=== PATIENT | female | born 1970 | race Hispanic/Latino ===

== ENCOUNTER 2020-11-10 12:35 | Observation (INO) | payer OTHER ==
[2020-11-10] VITALS (7 sets, daily range): BP systolic 82–93; BP diastolic 50–53
[~2020-11-10] VITALS: Ht 154.9 cm; Wt 86.0 kg
[~2020-11-10 12:35] MED LIST: AMOXICILLIN/CL875 MG OR; AMOXICILLIN500 MG PO; ASPIRIN; AUGMENTIN500 MG OR; AUGMENTIN875TAB OR; AUGMENTIN875TAB PO; AVELOX400 MG PO; CETIRIZINE10 MG PO; CLARITHROMYCIN500 MG PO; FLAGYL500 MG OR; FLONASE NASAL50 MCG; IBUPROFEN200 MG; LEVAQUIN500 MG PO; LEVAQUIN750 MG PO; NAPROSYN500 MG OR; NASONEX50 MCG/AC; NO HOME MEDS; OMEPRAZOLE40 MG PO; PENICILLN VK500 MG OR; PREVACID30 M1; PRILOSEC40 MG PO; PROAIR HFA IN; QVAR40 MCG IN; QVAR80 MCG IN; ROBITUSSIN AC OR; ROBITUSSIN AC10 ML PO; ROCEPHIN 1 GM1 GM IM; VENTOLIN HFA IN; ZOFRAN ODT8 MG SL; ZPAK OR; ZPAK PO
--- NOTE | 2020-11-10 12:47 | NUR ---
PT TO ROOM VIA W/C
[2020-11-10] MEDS ORDERED: LEVOTHYROXIN50 MCG PO (12:59)
[2020-11-10] MEDS ORDERED: LOSARTAN POTASS25 MG PO (13:24)
[2020-11-10 13:28] LABS: HEMATOCRIT 37.3 % (37.0-47.0); HEMOGLOBIN 12.1 g/dl (12.0-16.0); IMMATURE GRANULOCYTES 0.9 % (0.0-5.0); MEAN CELL VOLUME 89.2 fL CALC (80.0-100.0); MEAN CORPUSCULAR HGB 28.9 pG CALC (26.0-32.0); MEAN CORPUSCULAR HGB CONC 32.4 g/dL CAL (32.0-36.0); NEUT# 2.67 thou/uL (2.00-7.15); RED BLOOD COUNT 4.18 mill/uL (4.20-5.60); RED CELL DISTRI WIDTH 14.6 % (11.5-15.5)
--- NOTE | 2020-11-10 13:30 | NUR ---
TREATMENTS COMPLETED AND PT UPDATED ON PLAN OF CARE. PT ASKED FOR BLANKET BUT BECAUSE OF FEVER, REQUEST WAS DENIED. SHE VERBALIZED UNDERSTANDING. FLUIDS FLOWING INTO PATENT IV. PT HYPOTENSIVE AND INSPECTOR AIDE NOTIFED.
[2020-11-10 13:39] LABS: URINE BLOOD DIPSTICK LARGE (NEGATIVE); URINE GLUCOSE - DIPSTICK NEGATIVE (NEGATIVE); URINE KETONE TRACE mg/dL (NEGATIVE); URINE PH 5.5 (4.5-8.0); URINE PROTEIN - DIPSTICK >=300 mg/dL (NEG-TRACE); URINE SPECIFIC GRAVITY 1.025
[2020-11-10 13:53] LABS: URINE BILIRUBIN - DIPSTICK SMALL (NEGATIVE); URINE COLOR DK. YELLOW; URINE LEUK ESTERASE SMALL (NEGATIVE); URINE NITRITE - DIPSTICK POSITIVE (Negative)
[2020-11-10 13:54] LABS: URINE BACTERIA MODERATE hpf; URINE EPITHELIAL CELLS MODERATE EPI/hpf (0-FEW); URINE RBC 50-100 RBC/hpf (0-5)
[2020-11-10 13:55] LABS: ALBUMIN 3.3 g/dL (3.2-5.0); ALKALINE PHOSPHATASE 71 u/l (38-126); BILIRUBIN, TOTAL 0.7 mg/dL (0.0-1.4); BUN 12 mg/dL (7-17); BUN/CREATININE RATIO 22 (12-20 (CALC)); CHLORIDE 102 mmol/l (95-108); CREATININE 0.5 mg/dL (0.5-1.0); GFR > 60 ML/MIN (>=60 (CALC)); GFR FOR AFR.AMER. > 60 ML/MIN (>=60 (CALC)); POTASSIUM 3.4 mmol/l (3.5-5.1); SODIUM 132 mmol/l (137-146); TOTAL PROTEIN 6.6 g/dL (6.3-8.2)
[2020-11-10 13:56] LABS: ANION GAP 10 (6-22 (CALC)); CARBON DIOXIDE 23 mmol/l (22-30); SGOT/AST 30 u/l (14-36)
--- NOTE | 2020-11-10 14:30 | NUR ---
GAVE REPORT TO MED SURG AND THEN DOCTOR CALLED TO CHANGE PT FROM BEING ADMITTED FROM MED SURG TO ICU. PT IS NOTIFED AND UPDATED ON THIS CHANGE.
--- NOTE | 2020-11-10 14:30 | NUR ---
PT RESTING WITH FLUIDS FLOWING INTO PATENT IV. ANTIBIOTIC COMPLETED
--- NOTE | 2020-11-10 15:30 | NUR ---
PT IS RESTING ON STRETCHER WITH FLUIDS FLOWING INTO PATENT IV
--- NOTE | 2020-11-10 16:27 | NUR ---
RECIEVED REPORT FROM ZARI HOPE. MANAGER FINE INFORMED THAT PT BP WAS SUSTAINING IN 80'S/50'S AFTER BOLUS X2. DR BECERRA CONTACTED VIA THIS MANAGER FINE. NO NEW ORDERS OBTAINED.
--- NOTE | 2020-11-10 16:52 | NUR ---
SOLAR SALES ASSESSOR INFORMED THAT PT WAS TO BE TRANSFERED TO ICU
--- NOTE | 2020-11-10 17:12 | NUR ---
PT RESTING WITH FLUIDS FLOWING INTO PATENT IV. COMMUNICATIONS ADMINISTRATOR UPDATED REG ON PT VITALS
--- NOTE | 2020-11-10 18:35 | NUR ---
GAVE REPORT TO BERE IN ICU
--- NOTE | 2020-11-10 19:52 | NUR ---
PT TRANSPORTED TO ICU ALL BELONGINGS WITH PATIENT.
--- NOTE | 2020-11-10 19:55 | NUR ---
PT TRASNPORTED TO ICU, ALL BELONINGS SENT WITH PATIENT
--- NOTE | 2020-11-10 20:00 | NUR ---
TO ICU 2. ALERT. COOPERATIVE. STATES HAD S/S OF UTI 11/07 BUT TOOK OTC MEDS FROM [facility] AND IS BETTER-NO MORE BURNING OR FREQUENCY. STATES THROUGHOUT DAY (WHILE IN ER) HAD FEVER AND SWEATED BUT FEELS MUCH BETTER NOW. B/P REMAINS SLIGHTLY LOW
--- NOTE | 2020-11-10 21:30 | NUR ---
DAUGHTER CALLED. PT AWARE AND TALKING ON CELL PHONE. NO DISTRESS NOTED. IV INFUSING RX-TOLERATINNG WELL
--- NOTE | 2020-11-10 22:14 | NUR ---
BEDRESTING. LIGHTS OUT. TV ON. N/C. HAS AGREED TO CALL FOR ASSISTANCE IF NEEDED TO GET UP TO BSC
[2020-11-11] VITALS (16 sets, daily range): BP systolic 87–122; BP diastolic 50–73
--- NOTE | 2020-11-11 | NUR ---
BEDRESTING. LIF=GHTS AND TV OFF. RESP EVEN AND NONLABORED. N/C VOICED
--- NOTE | 2020-11-11 01:43 | NUR ---
BEDRESTING. RESP EVEN AND NONLABORED. NO COUGH NOTED. N/C VOICED
--- NOTE | 2020-11-11 03:20 | NUR ---
BEDRESTING. RESP EVEN AND NONLABORED.
--- NOTE | 2020-11-11 04:38 | NUR ---
BEDRESTING. TV OFF. NO DISTRESS OTED
[2020-11-11 05:24] LABS: HEMATOCRIT 32.3 % (37.0-47.0); HEMOGLOBIN 10.2 g/dl (12.0-16.0); MEAN CELL VOLUME 91.2 fL CALC (80.0-100.0); MEAN CORPUSCULAR HGB 28.8 pG CALC (26.0-32.0); MEAN CORPUSCULAR HGB CONC 31.6 g/dL CAL (32.0-36.0); RED BLOOD COUNT 3.54 mill/uL (4.20-5.60); RED CELL DISTRI WIDTH 14.7 % (11.5-15.5)
[2020-11-11 05:48] LABS: ANION GAP 8 (6-22 (CALC)); BUN 9 mg/dL (7-17); BUN/CREATININE RATIO 21 (12-20 (CALC)); CARBON DIOXIDE 24 mmol/l (22-30); CHLORIDE 106 mmol/l (95-108); CREATININE 0.4 mg/dL (0.5-1.0); GFR > 60 ML/MIN (>=60 (CALC)); GFR FOR AFR.AMER. > 60 ML/MIN (>=60 (CALC)); MAGNESIUM 1.5 mg/dL (1.6-2.3); POTASSIUM 3.4 mmol/l (3.5-5.1); SODIUM 135 mmol/l (137-146)
--- NOTE | 2020-11-11 06:54 | NUR ---
REPORT GIVEN. BEDRESTING. WATCHING TV
--- NOTE | 2020-11-11 07:00 | NUR ---
REPORT RECEIVED FROM ZARI MONREAL
--- NOTE | 2020-11-11 07:15 | NUR ---
PT RESTING IN SEMI FOWLERS POSITION,A&O X3;VS OBTAINED AND ASSESSMENT COMPLETED;PT DENIES ANY CURRENT PAIN OR DISCOMFORTS,PAIN SCALE AND REPORTING EDUCATED;RESPIRATIONS EVEN AND UNLABORED ON RA,CLEAR LUNG SOUNDS;ABDOMEN SOFT ON PALPATION AND ACTIVE IN ALL 4 QUADRANTS;STRONG PEDAL PULSES;SKIN INTACT;CARDIAC MONITORING IN PLACE READING SR 80'S-90'S;#20G TO RAC INFUSING NS @ 100ML/HR,SITE APPEARS HEALTHY;PT DENIES ANY ADDITIONAL NEEDS AND IS ENCOURAGED TO CALL FOR ASSISTANCE IF NEEDED;FALL PRECAUTIONS IN PLACE WITH BED IN THE LOWEST POSITION AND CALL LIGHT IN REACH;WILL CONTINUE TO MONITOR
--- NOTE | 2020-11-11 07:50 | NUR ---
PT APPEARS CLAMMY AND REPORTS FEELING WARM;TEMP 100.7 AT THIS TIME;BLANKETS REMOVED AND PT MEDICATED WITH PRN TYLENOL 650MG PO AT THIS TIME;CRANBERRY JUICE PROVIDED PER REQUEST;PT DENIES ANY ADDITIONAL NEEDS;ENCOURAGED TO CALL FOR ASSISTANCE IF NEEDED;FALL PRECAUTIONS IN PLACE WITH CALL LIGHT IN REACH;WILL CONTINUE TO MONITOR
--- NOTE | 2020-11-11 08:51 | NUR ---
TEMP RE-CHECK 98.9.
--- NOTE | 2020-11-11 09:17 | NUR ---
AT BEDSIDE DISCUSSING POC.
--- NOTE | 2020-11-11 10:00 | NUR ---
PT RESTING IN SEMI FOWLERS POSITION;RESPIRATIONS EVEN AND UNLABORED ON RA;PT DENIES ANY CURRENT PAIN OR DISCOMFROTS;CARDIAC MONITORING IN PLACE;IV SITE PATENT AND IV MAG STARTED AT THIS TIME PER ORDER;PT DENIES ANY ADDITIONAL NEEDS;ENCOURAGED TO CALL FOR ASSISTANCE IF NEEDED;CALL LIGHT IN REACH;WILL CONTINUE TO MONITOR
--- NOTE | 2020-11-11 11:45 | NUR ---
PT RESTING IN SEMI FOWLERS POSITION WATCHING TV;RESPIRATIONS EVEN AND UNLABORED ON RA;PT DENIES ANY CURRENT PAIN OR DISCOMFORTS;CARDIAC MONITORING IN PLACE;TEMP 98.5 AND MEAL TRAY PROVIDED;IV SITE REMAINS PATENT;PT DENIES ANY ADDITIONAL NEEDS;CALL LIGHT IN REACH;WILL CONTINUE TO MONITOR
--- NOTE | 2020-11-11 13:00 | NUR ---
PT RESTING IN SEMI FOWLERS POSITION;ASSISTED TO BATHROOM WITH A STEADY GAIT;COMPLETE BED BATH PROVIDED AT THIS TIME AND LINEN CHANGE;RESPIRATIONS EVEN AND UNLABORED ON RA;IV SITE REMAINS PATENT INFUSING NS WITH EASE PER ORDER;CARDIAC MONITORING IN PLACE;PT REPOSITIONED INTO RECLINER PER REQUEST;PT DENIES ANY ADDITIONAL NEEDS AND IS ENCOURAGED TO CALL FOR ASSISTANCE IF NEEDED;CALL LIGHT IN REACH;WILL CONTINUE TO MONITOR
--- NOTE | 2020-11-11 13:28 | NUR ---
REPORT GIVEN TO JAYY SEAMAN ON MED/SURG. PT TO BE TRANSFERRED TO MED/SURG ROOM 278 WITH TELEMETRY.
--- NOTE | 2020-11-11 13:53 | NUR ---
PT TRANSFERRED TO ROOM 278 IN STABLE CONDITION VIA WHEELCHAIR ACCOMPANIED BY WRITTER. PT RE-POSITIONED INTO BED.RESPIRATIONS REMAIN EVEN AND UNLABORED ON RA;IV SITE PATENT;PT DENIES ANY CURRENT PAIN OR DISCOMFORTS;WT AND VS BEING OBTAINED BY SHAYY CABRERA;PT ENCOURAGED TO CALL FOR ASSISTANCE IF NEEDED;CALL LIGHT IN REACH;WILL CONTINUE TO MONITOR;CARE RELINQUISHED TO TO JAYY SEAMAN.
--- NOTE | 2020-11-11 14:05 | NUR ---
PT ARRIVED FROM ICU VIA WC WITH STAFF. IV SITE INTACT WITH FLUIDS. CONTINEU TO OSBERVE AND MONITOR
--- NOTE | 2020-11-11 16:10 | NUR ---
PT IS RELAXING IN BED WITH NO DISTRESS NOTED. IV SITE IS FREE FROM REDNESS OR EDEMA.
--- NOTE | 2020-11-11 19:30 | NUR ---
PATIENT RESTING IN BED AT THIS TIME-AWAKE ALERT AND ORIENTEDX3. PATIENT WITH TELE MONITOR IN PLACE. IVF PATENT AND INFUSING RAC SITE AT 100CC/HR. SITE IS HEALTHY AT THIS TIME. CALL LIGHT IN REACH. WILL CONT TO MONITOR.
--- NOTE | 2020-11-11 21:59 | NUR ---
PATIENT RESTING IN BED-C/O HEADACHE-5/10 ON PAIN SCALE. PATIENT MEDICATED WITH TYLENOL 650MG PO FOR PAIN. IVF PATENT AND INFUSING VIA RAC SITE AT 100CC/HR. CALL LIGHT IN REACH. WILL CONT TO MONITOR.
[2020-11-12] VITALS: BP 92/59
--- NOTE | 2020-11-12 01:03 | NUR ---
PATIENT RESTING IN BED. EYES ARE CLOSED. RESPS ARE EVEN AND UNLABORED. TELE MONITOR IN PLACE. IVF PATENT AND INFUSING AT 100CC/HR. CALL LIGHT IN REACH. WILL CONT TO MONITOR.
[2020-11-12 04:00] VITALS: BP 92/56
--- NOTE | 2020-11-12 04:35 | NUR ---
PATIENT RESTING IN BED AT THIS TIME WITH EYES CLOSED. RESPS ARE EVEN AND UNLABORED. TELE MONITOR IN PLACE-LAST READING WAS SR-67. IVF PATENT AND INFUSING VIA RAC SITE AT 100CC/HR. CALL LIGHT IN REACH. WILL CONT TO MONITOR.
[2020-11-12 05:32] LABS: HEMATOCRIT 28.7 % (37.0-47.0); MEAN CELL VOLUME 91.4 fL CALC (80.0-100.0); MEAN CORPUSCULAR HGB 28.7 pG CALC (26.0-32.0); MEAN CORPUSCULAR HGB CONC 31.4 g/dL CAL (32.0-36.0); RED BLOOD COUNT 3.14 mill/uL (4.20-5.60); RED CELL DISTRI WIDTH 14.9 % (11.5-15.5)
[2020-11-12 05:56] LABS: ANION GAP 5 (6-22 (CALC)); BUN 4 mg/dL (7-17); BUN/CREATININE RATIO 9 (12-20 (CALC)); CARBON DIOXIDE 28 mmol/l (22-30); CHLORIDE 107 mmol/l (95-108); CREATININE 0.5 mg/dL (0.5-1.0); GFR > 60 ML/MIN (>=60 (CALC)); GFR FOR AFR.AMER. > 60 ML/MIN (>=60 (CALC)); POTASSIUM 3.4 mmol/l (3.5-5.1); SODIUM 136 mmol/l (137-146)
[2020-11-12 06:00] LABS: MAGNESIUM 1.9 mg/dL (1.6-2.3)
[2020-11-12 08:05] VITALS: BP 123/62
--- NOTE | 2020-11-12 08:05 | NUR ---
ASSESSMENT IS COMPLETED: IV SITE IS FREE FROM REDNESS OR EDEMA. HR IS REG,PULSES ARE STRONG X4, ABD IS SOFT WITH ACTIVE BS. BREATH SOUNDS ARE CLEAR BILATERALLY. TELE MONITOR IN PLACE. CONTINUE TO OBSERVE AND MONITOR.
[2020-11-12 11:17] VITALS: BP 116/75
--- NOTE | 2020-11-12 12:00 | NUR ---
PT WANTED A SHOWER PRIOR TO LUNCH. NO DISTRESS NOTED. IV SITE IS FREE FROM REDNESS OR EDEMA.
[2020-11-12 15:06] VITALS: BP 107/47
--- NOTE | 2020-11-12 16:10 | NUR ---
PT IS RELAXING IN BED WITH NO DISTRESS NOTED. IV SITE IS FREE FROM REDNESS OR EDEMA.
[2020-11-12] MEDS ORDERED: OMNICEF300 MG PO (16:56)
[2020-11-12 19:00] VITALS: BP 108/71
--- NOTE | 2020-11-12 19:18 | NUR ---
REPORT FROM JURGEN HOPE. ASSUME PT CARE.
--- NOTE | 2020-11-12 19:49 | NUR ---
PT NOTED SITTING UP IN BED WATCHING TV. ALERT AND ORIENTED X4. NO APPARENT DISTRESS NOTED. RESPIRATIONS EVEN AND UNLABORED. PT C/O ISRAEL, MEDICATED WITH PRN MOTRIN. PT DENIES ANY OTHER CURRENT WANTS OR NEEDS. IV SITE APPEARS HEALTHY WITH IVF KVO. SUPERVISOR PIPE FINISHING IN PLACE. DISCUSSED POC AND SAFETY PRECAUTIONS. PT VERBALIZED UNDERSTANDING. DENIES ANY CURRENT WANTS OR NEEDS. CALL LIGHT WITHIN REACH. WILL CONTINUE TO MONITOR.
--- NOTE | 2020-11-12 23:16 | NUR ---
PT NOTED RESTING IN BED WITH EYES CLOSED. NO APPARENT DISTRESS NOTED. CALL LIGHT WITHIN REACH. WILL CONTINUE TO MONITOR.
[2020-11-13] VITALS: BP 109/68
--- NOTE | 2020-11-13 03:06 | NUR ---
PT RESTING IN BED WITH EYES CLOSED. NO APPARENT DISTRESS NOTED. RESPIRATIONS EVEN AND UNLABORED. CALL LIGHT WITHIN REACH. WILL CONTINUE TO MONITOR.
[2020-11-13 04:00] VITALS: BP 118/72
--- NOTE | 2020-11-13 04:53 | NUR ---
AERONAUTICAL DESIGN ENGINEER IN ROOM TO OBTAIN LABS.
[2020-11-13 05:42] LABS: HEMATOCRIT 30.5 % (37.0-47.0); HEMOGLOBIN 9.6 g/dl (12.0-16.0); MEAN CORPUSCULAR HGB 28.7 pG CALC (26.0-32.0); MEAN CORPUSCULAR HGB CONC 31.5 g/dL CAL (32.0-36.0); RED BLOOD COUNT 3.35 mill/uL (4.20-5.60); RED CELL DISTRI WIDTH 14.6 % (11.5-15.5)
[2020-11-13 06:02] LABS: ANION GAP 7 (6-22 (CALC)); BUN 4 mg/dL (7-17); BUN/CREATININE RATIO 9 (12-20 (CALC)); CARBON DIOXIDE 31 mmol/l (22-30); CHLORIDE 104 mmol/l (95-108); CREATININE 0.5 mg/dL (0.5-1.0); GFR > 60 ML/MIN (>=60 (CALC)); GFR FOR AFR.AMER. > 60 ML/MIN (>=60 (CALC)); POTASSIUM 3.9 mmol/l (3.5-5.1); SODIUM 138 mmol/l (137-146)
[2020-11-13 07:26] VITALS: BP 111/73
--- NOTE | 2020-11-13 08:15 | NUR ---
SHIFT CHANGE REPORT, PT AWAKE ALERT AND ORIENTED SITTING UP IN BED, C/O ACHING HEADACHE AT 2/10 WHICH IS IMPROVED FROM 6/10 AFTER BEING MEDICATED. TELE MOITOR IN PLACE, IVF INFUSING, CALL COLLINS IN REACH AND BED LOCKED IN LOWEST POSITION.
[2020-11-13 10:50] VITALS: BP 116/69
--- NOTE | 2020-11-13 11:50 | NUR ---
ALL NEEDS ADDRESSED, SITTING UP IN RECLINER AWAITING MD'S ROUNDING.
--- NOTE | 2020-11-13 12:59 | NUR ---
Discharge instructions given. Patient verbalizes understanding of same. Discharged in good condition via Wheelchair to Home with family. All belongings sent with pt.
== END 2020-11-13 12:43 | disposition home or self-care (01) ==
LOC: ED 12:35 → ED-I 14:44 → ED 14:54 → MS2 14:55 → ED-I 16:30 → ICU 18:31 → MS2 11-11 14:00
PROVIDERS: Nurse Practitioner; ADMIT Internal Medicine; ATTEND Internal Medicine
DX: A41.9 Sepsis, unspecified organism (principal); N12 Tubulo-interstitial nephritis, not specified as acute or chronic; I95.9 Hypotension, unspecified; E83.42 Hypomagnesemia; E87.6 Hypokalemia; E03.9 Hypothyroidism, unspecified; I10 Essential (primary) hypertension; B96.20 Unspecified Escherichia coli [E. coli] as the cause of diseases classified elsewhere; Z20.822 Contact with and (suspected) exposure to COVID-19
CPT/HCPCS: G0378; J3475

== ENCOUNTER 2022-09-15 07:36 | Day surgery (SDC) | payer OTHER ==
[~2022-09-15] VITALS: Ht 152.4 cm; Wt 88.0 kg
[~2022-09-15 07:36] MED LIST changes: +LEVOTHYROXIN50 MC1 PO; +LEVOTHYROXIN50 MCG PO; +LOSARTAN POTASS25 MG PO; +MULTI VIT PO; +OMEPRAZOLE20 MG PO; +OMNICEF300 MG PO; +PROBIOTI2 PO
[2022-09-15 09:45] VITALS: BP 124/77
== END 2022-09-15 09:26 | disposition home or self-care (01) ==
LOC: ENDO 07:36
PROVIDERS: ATTEND Surgery
DX: Z12.11 Encounter for screening for malignant neoplasm of colon (principal); K57.30 Diverticulosis of large intestine without perforation or abscess without bleeding; K64.8 Other hemorrhoids; I10 Essential (primary) hypertension; Z98.84 Bariatric surgery status